=== PATIENT | male | born 1985 | race Caucasian/White ===

== ENCOUNTER 2022-03-26 03:16 | Emergency (ER) | payer OTHER ==
[2022-03-26 03:28] VITALS: BP 136/80; PULSE 75; RESP 15; TEMP 97.5
--- NOTE | 2022-03-26 04:13 | CT ---
EXAMINATION TYPE: CT brain cspine wo con DATE OF EXAM: 03/26/2022 COMPARISON: None HISTORY: fall +LOC. no prior on PACS CT DLP: 1427.6 mGycm Automated exposure control for dose reduction was used. Images obtained of the brain and cervical spine with no contrast. Ventricles and sulci appear normal. There is no mass effect or midline shift. No sign of intracranial hemorrhage. Calvarium is intact. There is normal aeration of the mastoid sinuses. Skull base is inta ct. Cervical vertebra have normal spacing and alignment. Posterior elements are intact. Facet joints are intact. Prevertebral soft tissues are intact. IMPRESSION: Negative CT scan of the brain. Negative CT scan cervical spine.
[2022-03-26] MEDS ORDERED: SODIUM CHLORIDE 0.9% 500 ML 500 ML IV STA (04:34)
--- NOTE | 2022-03-26 04:35 | ED ---
Altered Mental Status HPI - General Chief Complaint: Fall Stated Complaint: Fall, Head Injury, Lost Consciousness, back/neck p Time Seen by Provider: 03/26/22 03:30 Source: patient Mode of arrival: wheelchair Limitations: no limitations - Related Data Home Medications Medication Instructions Recorded Confirmed Escitalopram [Lexapro] 10 mg PO DAILY 03/28/22 04/01/22 QUEtiapine FUMARATE [SEROquel] 800 mg PO HS 03/28/22 04/01/22 busPIRone HCL [Buspar] 30 mg PO BID 03/28/22 04/01/22 Allergies Allergy/AdvReac Type Severity Reaction Status Date / Time No Known Allergies Allergy Unverified 04/01/22 16:22 Review of Systems ROS Statement: Those systems with pertinent positive or pertinent negative responses have been documented in the HPI. ROS Other: All systems not noted in ROS Statement are negative. Past Medical History Past Medical History: Unable to Obtain History of Any Multi-Drug Resistant Organisms: Unobtainable Past Surgical History: Unable to Obtain Past Psychological History: Unable to Obtain Smoking Status: Unknown if ever smoked Past Alcohol Use History: Unable to Obtain Past Drug Use History: Unable to Obtain General Exam Limitations: no limitations Course Vital Signs 03/26/22 03:24 Temperature 97.5 F L Pulse Rate 75 Respiratory 15 Rate Blood Pressure 136/80 O2 Sat by Pulse 100 Oximetry Disposition Clinical Impression: Fall, Pre-syncope, Syncope Disposition: Left Against Medical Advice Condition: Fair Instructions (If sedation given, give patient instructions): Fall Prevention for Older Adults (ED) Is patient prescribed a controlled substance at d/c from ED?: No Referrals: Nonstaff,Physician [Primary Care Provider] - 1-2 days
== END 2022-03-26 04:36 | disposition left against medical advice (07) ==
LOC: EC 03:16
DX: S06.0X9A Concussion with loss of consciousness of unspecified duration, initial encounter (principal); R55 Syncope and collapse; Z53.29 Procedure and treatment not carried out because of patient's decision for other reasons; W19.XXXA Unspecified fall, initial encounter
CPT/HCPCS: 70450; 72125; 99284

== ENCOUNTER 2022-03-28 13:12 | Inpatient (IN) | payer MEDICAID, OTHER ==
[2022-03-28] MEDS ORDERED: SODIUM CHLORIDE 0.9% 2,000 ML IV ONE (14:22)
[2022-03-28 15:06] LABS: Basophils # (A) 0.1 k/uL (0-0.2); Basophils % (A) 1 %; Eosinophils # (A) 0.3 k/uL (0-0.7); Eosinophils % (A) 3 %; HCT 51.6 % (39.0-53.0); HGB 17.4 gm/dL (13.0-17.5); Lymphocytes # (A) 1.9 k/uL (1.0-4.8); Lymphocytes % (A) 22 %; MCH 31.3 pg (25.0-35.0); MCHC 33.7 g/dL (31.0-37.0); MCV 93.1 fL (80.0-100.0); Mean Platelet Volume 7.1; Monocytes # (A) 0.5 k/uL (0-1.0); Monocytes % (A) 6 %; Neutrophils # (A) 5.7 k/uL (1.3-7.7); Neutrophils % (A) 68 %; Platelet Count 255 k/uL (150-450); RBC 5.54 m/uL (4.30-5.90); RDW 12.9 % (11.5-15.5); WBC 8.5 k/uL (3.8-10.6)
--- NOTE | 2022-03-28 15:08 | ED ---
Psych HPI - General Source: patient, RN notes reviewed Mode of arrival: ambulatory Limitations: no limitations <Corey Chan - Last Filed: 03/28/22 15:07> <Oleksandr Jarvis - Last Filed: 03/28/22 18:20> - General Chief Complaint: Psychiatric Symptoms Stated Complaint: Mental health Time Seen by Provider: 03/28/22 14:13 - History of Present Illness Initial Comments: 36-year-old male presents emergency Department for psychiatric treatment. Patient not forthcoming with information. Patient is brought in by police. Patient recent ER visit for head injury. Patient states his been ongoing for a while patient initially was not responsive though patient was told that he needed to have an IV and urine straight cath patient awoke was able to tolerate oral intake stated that he states his been having some psych issues., Stating that he is confused now. (Corey Chan) - Related Data Allergies Allergy/AdvReac Type Severity Reaction Status Date / Time No Known Allergies Allergy Unverified 03/28/22 16:28 Review of Systems ROS Other: All systems not noted in ROS Statement are negative. <Corey Chan - Last Filed: 03/28/22 15:07> ROS Other: All systems not noted in ROS Statement are negative. <Oleksandr Jarvis - Last Filed: 03/28/22 18:20> ROS Statement: Those systems with pertinent positive or pertinent negative responses have been documented in the HPI. Past Medical History Past Medical History: Unable to Obtain History of Any Multi-Drug Resistant Organisms: Unobtainable Past Surgical History: Unable to Obtain Past Psychological History: Unable to Obtain Smoking Status: Unknown if ever smoked Past Alcohol Use History: Unable to Obtain Past Drug Use History: Unable to Obtain <Corey Chan - Last Filed: 03/28/22 15:07> General Exam Limitations: no limitations General appearance: alert, in no apparent distress Head exam: Present: atraumatic, normocephalic, normal inspection Eye exam: Present: normal appearance, PERRL, EOMI. Absent: scleral icterus, conjunctival injection, periorbital swelling ENT exam: Present: normal exam, normal oropharynx, mucous membranes moist Neck exam: Present: normal inspection, full ROM. Absent: tenderness, meningismus, lymphadenopathy Respiratory exam: Present: normal lung sounds bilaterally. Absent: respiratory distress, wheezes, rales, rhonchi, stridor Cardiovascular Exam: Present: regular rate, normal rhythm, normal heart sounds. Absent: systolic murmur, diastolic murmur, rubs, gallop, clicks Neurological exam: Present: alert, oriented X3, CN II-XII intact, reflexes normal. Absent: motor sensory deficit Skin exam: Present: warm, dry, intact, normal color. Absent: rash <Corey Chan - Last Filed: 03/28/22 15:07> Course Vital Signs 03/28/22 13:53 Temperature 97.9 F Pulse Rate 71 Respiratory 18 Rate Blood Pressure 121/87 O2 Sat by Pulse 100 Oximetry Medical Decision Making - Lab Data Result diagrams: 03/28/22 14:55 <Corey Chan - Last Filed: 03/28/22 15:07> - Lab Data Result diagrams: 03/28/22 14:55 03/28/22 14:55 <Oleksandr aJrvis - Last Filed: 03/28/22 18:20> - Medical Decision Making Patient arrived by EPS recommended inpatient psychiatric admission. Patient e valuated at bedside at 6:20 PM found with stable medical condition. Certification was completed. (Oleksandr Jarvis) - Lab Data Lab Results 03/28/22 03/28/22 03/28/22 Range/Units 14:55 14:55 15:30 WBC 8.5 (3.8-10.6) k/uL RBC 5.54 (4.30-5.90) m/uL Hgb 17.4 (13.0-17.5) gm/dL Hct 51.6 (39.0-53.0) % MCV 93.1 (80.0-100.0) fL MCH 31.3 (25.0-35.0) pg MCHC 33.7 (31.0-37.0) g/dL RDW 12.9 (11.5-15.5) % Plt Count 255 (150-450) k/uL MPV 7.1 Neutrophils % 68 % Lymphocytes % 22 % Monocytes % 6 % Eosinophils % 3 % Basophils % 1 % Neutrophils # 5.7 (1.3-7.7) k/uL Lymphocytes # 1.9 (1.0-4.8) k/uL Monocytes # 0.5 (0-1.0) k/uL Eosinophils # 0.3 (0-0.7) k/uL Basophils # 0.1 (0-0.2) k/uL Sodium 139 (137-145) mmol/L Potassium 4.9 (3.5-5.1) mmol/L Chloride 101 (98-107) mmol/L Carbon Dioxide 30 (22-30) mmol/L Anion Gap 8 mmol/L BUN 12 (9-20) mg/dL Creatinine 0.79 (0.66-1.25) mg/dL Est GFR (CKD-EPI)AfAm >90 (>60 ml/min/1.73 sqM) Est GFR (CKD-EPI)NonAf >90 (>60 ml/min/1.73 sqM) Glucose 93 (74-99) mg/dL Calcium 9.6 (8.4-10.2) mg/dL Magnesium 2.1 (1.6-2.3) mg/dL Total Bilirubin 0.9 (0.2-1.3) mg/dL AST 29 (17-59) U/L ALT 15 (4-49) U/L Alkaline Phosphatase 74 (38-126) U/L Total Protein 8.2 (6.3-8.2) g/dL Albumin 5.1 H (3.5-5.0) g/dL Lipase 402 H (23-300) U/L Urine Color Yellow Urine Appearance Clear (Clear) Urine pH 6.5 (5.0-8.0) Ur Specific [place] 1.019 (1.001-1.035) Urine Protein Trace H (Negative) Urine Glucose (UA) Negative (Negative) Urine Ketones Negative (Negative) Urine Blood Negative (Negative) Urine Nitrite Negative (Negative) Urine Bilirubin Negative (Negative) Urine Urobilinogen <2.0 (<2.0) mg/dL Ur Leukocyte Esterase Trace H (Negative) Urine RBC 1 (0-5) /hpf Urine WBC 4 (0-5) /hpf Ur Squamous Epith Cells <1 (0-4) /hpf Hyaline Casts 1 (0-2) /lpf Urine Mucus Rare H (None) /hpf Salicylates <1.0 mg/dL Urine Opiates Screen Not Detected (NotDetected) Ur Oxycodone Screen Not Detected (NotDetected) Urine Methadone Screen Not Detected (NotDetected) Ur Propoxyphene Screen Not Detected (NotDetected) Acetaminophen <10.0 ug/mL Ur Barbiturates Screen Not Detected (NotDetected) U Tricyclic Antidepress Not Detected (NotDetected) Ur Phencyclidine Scrn Not Detected (NotDetected) Ur Amphetamines Screen Not Detected (NotDetected) U Methamphetamines Scrn Not Detected (NotDetected) U Benzodiazepines Scrn Not Detected (NotDetected) Urine Cocaine Screen Not Detected (NotDetected) U Marijuana (THC) Screen Not Detected (NotDetected) Serum Alcohol <10 mg/dL Disposition <Corey Chan M - Last Filed: 03/28/22 15:07> <Oleksandr Jarvis - Last Filed: 03/28/22 18:20> Clinical Impression: Psychosis Disposition: ADMITTED IP TO THIS [facility] Condition: Fair Referrals: None,Stated [Primary Care Provider] - 1-2 days
[2022-03-28 15:17] LABS: ALT 15 U/L (4-49); AST 29 U/L (17-59); Acetaminophen <10.0 ug/mL; African American GFR (CKD) >90 (>60 ml/min/1.73 sqM); Albumin 5.1 g/dL (3.5-5.0); Alcohol <10 mg/dL; Alkaline Phosphatase 74 U/L (38-126); Anion Gap 8 mmol/L; Blood Urea Nitrogen 12 mg/dL (9-20); Calcium 9.6 mg/dL (8.4-10.2); Carbon Dioxide 30 mmol/L (22-30); Chloride 101 mmol/L (98-107); Glucose 93 mg/dL (74-99); Lipase 402 U/L (23-300); Magnesium 2.1 mg/dL (1.6-2.3); Non-African American GFR(CKD) >90 (>60 ml/min/1.73 sqM); Potassium 4.9 mmol/L (3.5-5.1); Salicylate <1.0 mg/dL; Sodium 139 mmol/L (137-145); Total Bilirubin 0.9 mg/dL (0.2-1.3); Total Protein 8.2 g/dL (6.3-8.2)
[2022-03-28 15:46] LABS: Appearance,Urine Clear (Clear); Bilirubin,Urine Negative (Negative); Blood,Urine Negative (Negative); Color,Urine Yellow; Glucose,Urine (UA) Negative (Negative); Hyaline Casts,Urine 1 /lpf (0-2); Ketones,Urine Negative (Negative); Leukocyte Esterase,Urine Trace (Negative); Mucus,Urine Rare /hpf; Nitrite,Urine Negative (Negative); PH, Urine 6.5 (5.0-8.0); Protein,Urine Trace (Negative); RBC,Urine 1 /hpf (0-5); Specific Gravity,Urine 1.019 (1.001-1.035); Squamous Epithelial Cell,Urine <1 /hpf (0-4); Urobilinogen,Urine <2.0 mg/dL (<2.0); WBC,Urine 4 /hpf (0-5)
[2022-03-28 15:57] LABS: Amphetamine Screen,Urine Not Detected (NotDetected); Barbiturate Screen,Urine Not Detected (NotDetected); Benzodiazepines Screen,Urine Not Detected (NotDetected); Cocaine Screen,Urine Not Detected (NotDetected); Methadone Screen, Urine Not Detected (NotDetected); Opiate Screen,Urine Not Detected (NotDetected); Oxycodone Screen, Urine Not Detected (NotDetected); Phencyclidine Screen,Urine Not Detected (NotDetected); Tricyclic Antidepressant,Urine Not Detected (NotDetected); Urn Cannabinoid Scrn Not Detected (NotDetected)
[2022-03-28] MEDS ORDERED: MAGNESIUM HYDROXIDE 2,400 MG/10 ML CUP PO PRN (22:32)
[2022-03-28] MEDS ORDERED: ACETAMINOPHEN TAB 325 MG TAB PO PRN (22:32)
[2022-03-28] MEDS ORDERED: MAG HYDROX/AL HYDROX/SIMETH 30 ML CUP PO PRN (22:32)
[2022-03-28] MEDS ORDERED: LORazepam 2 MG/ML INJ IM PRN (22:51)
[2022-03-28] MEDS ORDERED: LORazepam 1 MG TAB PO STA (22:51)
[2022-03-28] MEDS ORDERED: LORazepam 1 MG TAB PO PRN (22:51)
[2022-03-28] MEDS ORDERED: haloperidoL 5 MG TAB PO PRN (22:54)
[2022-03-28] MEDS ORDERED: HALOPERIDOL LACTATE 5 MG/ML 1 ML VIAL IM PRN (22:54)
[2022-03-28] MEDS ORDERED: QUEtiapine 100 MG TAB PO SCH (23:00)
--- NOTE | 2022-03-29 01:40 | P.PN ---
Progress Note - Text Progress Note Date: 03/29/22 Notified of the consult by the mental health unit RN who also noted that the patient is currently actively psychotic and not appropriate for evaluation.
[2022-03-29] MEDS: NICOTINE 14MG/24HR PATCH TRANSDERM SCH (09:34)
[2022-03-29] MEDS: ESCITALOPRAM 10 MG TAB PO SCH (09:35)
[2022-03-29] MEDS: busPIRone HCl 10 MG TAB PO SCH ×2 (09:35→21:09)
[2022-03-29 09:57] LABS: Basophils % (A) 0 %; Eosinophils # (A) 0.2 k/uL (0-0.7); Eosinophils % (A) 3 %; HCT 46.8 % (39.0-53.0); HGB 15.7 gm/dL (13.0-17.5); Lymphocytes % (A) 18 %; MCH 31.9 pg (25.0-35.0); MCHC 33.6 g/dL (31.0-37.0); MCV 94.9 fL (80.0-100.0); Mean Platelet Volume 7.1; Monocytes # (A) 0.2 k/uL (0-1.0); Monocytes % (A) 3 %; Neutrophils # (A) 3.9 k/uL (1.3-7.7); Neutrophils % (A) 74 %; Platelet Count 211 k/uL (150-450); RBC 4.93 m/uL (4.30-5.90); RDW 13.3 % (11.5-15.5); WBC 5.3 k/uL (3.8-10.6)
[2022-03-29 10:11] LABS: ALT 12 U/L (4-49); AST 16 U/L (17-59); African American GFR (CKD) >90 (>60 ml/min/1.73 sqM); Albumin 3.8 g/dL (3.5-5.0); Alkaline Phosphatase 58 U/L (38-126); Anion Gap 5 mmol/L; Bilirubin,Unconjugated 0.6 mg/dL (0.0-1.1); Blood Urea Nitrogen 9 mg/dL (9-20); Calcium 8.9 mg/dL (8.4-10.2); Carbon Dioxide 29 mmol/L (22-30); Chloride 105 mmol/L (98-107); Glucose 111 mg/dL (74-99); Non-African American GFR(CKD) >90 (>60 ml/min/1.73 sqM); Potassium 4.2 mmol/L (3.5-5.1); Sodium 139 mmol/L (137-145); Total Bilirubin 0.6 mg/dL (0.2-1.3); Total Protein 6.2 g/dL (6.3-8.2)
--- NOTE | 2022-03-29 12:02 | P.HP ---
Psychiatric H&P - . H&P Date: 03/29/22 History & Physical: Allergies Allergy/AdvReac Type Severity Reaction Status Date / Time No Known Allergies Allergy Unverified 03/28/22 16:28 Vital Signs Temp 97.1 F L 03/29/22 00:41 Pulse 63 03/29/22 00:41 Resp 16 03/29/22 09:33 BP 111/72 03/29/22 00:41 Pulse Ox 99 03/29/22 09:33 FiO2 Intake & Output 03/28/22 03/29/22 03/29/22 18:59 06:59 18:59 Weight 72.575 kg Laboratory Last Values WBC 5.3 k/uL (3.8-10.6) 03/29/22 09:27 RBC 4.93 m/uL (4.30-5.90) 03/29/22 09:27 Hgb 15.7 gm/dL (13.0-17.5) 03/29/22 09:27 Hct 46.8 % (39.0-53.0) 03/29/22 09:27 MCV 94.9 fL (80.0-100.0) 03/29/22 09:27 MCH 31.9 pg (25.0-35.0) 03/29/22 09:27 MCHC 33.6 g/dL (31.0-37.0) 03/29/22 09:27 RDW 13.3 % (11.5-15.5) 03/29/22 09:27 Plt Count 211 k/uL (150-450) 03/29/22 09:27 MPV 7.1 03/29/22 09:27 Neutrophils % 74 % 03/29/22 09:27 Lymphocytes % 18 % 03/29/22 09:27 Monocytes % 3 % 03/29/22 09:27 Eosinophils % 3 % 03/29/22 09:27 Basophils % 0 % 03/29/22 09:27 Neutrophils # 3.9 k/uL (1.3-7.7) 03/29/22 09:27 Lymphocytes # 1.0 k/uL (1.0-4.8) 03/29/22 09:27 Monocytes # 0.2 k/uL (0-1.0) 03/29/22 09:27 Eosinophils # 0.2 k/uL (0-0.7) 03/29/22 09:27 Basophils # 0.0 k/uL (0-0.2) 03/29/22 09:27 Sodium 139 mmol/L (137-145) 03/29/22 09:27 Potassium 4.2 mmol/L (3.5-5.1) 03/29/22 09:27 Chloride 105 mmol/L (98-107) 03/29/22 09:27 Carbon Dioxide 29 mmol/L (22-30) 03/29/22 09:27 Anion Gap 5 mmol/L 03/29/22 09:27 BUN 9 mg/dL (9-20) 03/29/22 09:27 Creatinine 0.87 mg/dL (0.66-1.25) 03/29/22 09:27 Est GFR (CKD-EPI)AfAm >90 (>60 ml/min/1.73 sqM) 03/29/22 09:27 Est GFR (CKD-EPI)NonAf >90 (>60 ml/min/1.73 sqM) 03/29/22 09:27 Glucose 111 mg/dL (74-99) H 03/29/22 09:27 Calcium 8.9 mg/dL (8.4-10.2) 03/29/22 09:27 Magnesium 2.1 mg/dL (1.6-2.3) 03/28/22 14:55 Total Bilirubin 0.6 mg/dL (0.2-1.3) 03/29/22 09:27 Conjugated Bilirubin 0.0 mg/dL (0.0-0.3) 03/29/22 09:27 Unconjugated Bilirubin 0.6 mg/dL (0.0-1.1) 03/29/22 09:27 Delta Bilirubin 0.0 mg/dL (0.0-0.2) 03/29/22 09:27 AST 16 U/L (17-59) L 03/29/22 09:27 ALT 12 U/L (4-49) 03/29/22 09:27 Alkaline Phosphatase 58 U/L (38-126) 03/29/22 09:27 Total Protein 6.2 g/dL (6.3-8.2) L 03/29/22 09:27 Albumin 3.8 g/dL (3.5-5.0) 03/29/22 09:27 Lipase 402 U/L (23-300) H 03/28/22 14:55 TSH 0.475 mIU/L (0.465-4.680) 03/29/22 09:27 Urine Color Yellow 03/28/22 15:30 Urine Appearance Clear (Clear) 03/28/22 15:30 Urine pH 6.5 (5.0-8.0) 03/28/22 15:30 Ur Specific [place] 1.019 (1.001-1.035) 03/28/22 15:30 Urine Protein Trace (Negative) H 03/28/22 15:30 Urine Glucose (UA) Negative (Negative) 03/28/22 15:30 Urine Ketones Negative (Negative) 03/28/22 15:30 Urine Blood Negative (Negative) 03/28/22 15:30 Urine Nitrite Negative (Negative) 03/28/22 15:30 Urine Bilirubin Negative (Negative) 03/28/22 15:30 Urine Urobilinogen <2.0 mg/dL (<2.0) 03/28/22 15:30 Ur Leukocyte Esterase Trace (Negative) H 03/28/22 15:30 Urine RBC 1 /hpf (0-5) 03/28/22 15:30 Urine WBC 4 /hpf (0-5) 03/28/22 15:30 Ur Squamous Epith Cells <1 /hpf (0-4) 03/28/22 15:30 Hyaline Casts 1 /lpf (0-2) 03/28/22 15:30 Urine Mucus Rare /hpf (None) H 03/28/22 15:30 Salicylates <1.0 mg/dL 03/28/22 14:55 Urine Opiates Screen Not Detected (NotDetected) 03/28/22 15:30 Ur Oxycodone Screen Not Detected (NotDetected) 03/28/22 15:30 Urine Methadone Screen Not Detected (NotDetected) 03/28/22 15:30 Ur Propoxyphene Screen Not Detected (NotDetected) 03/28/22 15:30 Acetaminophen <10.0 ug/mL 03/28/22 14:55 Ur Barbiturates Screen Not Detected (NotDetected) 03/28/22 15:30 U Tricyclic Antidepress Not Detected (NotDetected) 03/28/22 15:30 Ur Phencyclidine Scrn Not Detected (NotDetected) 03/28/22 15:30 Ur Amphetamines Screen Not Detected (NotDetected) 03/28/22 15:30 U Methamphetamines Scrn Not Detected (NotDetected) 03/28/22 15:30 U Benzodiazepines Scrn Not Detected (NotDetected) 03/28/22 15:30 Urine Cocaine Screen Not Detected (NotDetected) 03/28/22 15:30 U Marijuana (THC) Screen Not Detected (NotDetected) 03/28/22 15:30 Serum Alcohol <10 mg/dL 03/28/22 14:55 Coronavirus (PCR) Not Detected (Not Detectd) 03/28/22 18:23 03/29/22 12:02 IDENTIFYING DATA: Patient is a 36-year-old male with significant history of schizophrenia was admitted for a mental health evaluation. HPI: Patient presented to the hospital on 03/28/2022, brought in by police. The patient appeared to be confused, exhibiting psychomotor slowing, and unable to appropriately answer questions. As per APS report, the patient stated that he felt dazed and confused and that would take him 5 hours to walk a mile because he gets lost and eases off. The patient also is reported to have several medications including Seroquel, BuSpar, and Lexapro. The patient was subsequently petitioned and certified and admitted to our psychiatric unit. Upon evaluation on her psychiatric unit, the patient remains selectively mute. As per nursing report last night, the patient required much prompting in order to move out of his wheelchair. He was not resistive but needed prompting to cooperate. He was also noted to be very disheveled than sunburn. The patient was agreeable to Ativan and then went to bed. When assessed this morning, the patient continues to be selectively mute and appears to stare at the ground. He remains minimal in conversation. He is unable to provide any information on the events leading up to this hospitalization. It takes him a few minutes to respond to any questions, even questions that required yes and no answer. He is currently denying any suicidal or homicidal ideation. He denies any auditory or visual hallucinations. When asked about any delusional thoughts or thought process, the patient is unable to respond. Attempts to elicit any further history regarding his psychiatric medications, substance use, social history, family history, and substance abuse, were met with futility. A second certificate was filled out. PAST PSYCHIATRIC HISTORY: Patient has all medications including Seroquel, Lexapro, and BuSpar. Unable to determine whether the patient has been adherent with these medications or if he follows outpatient with any provider. Unable to determine if he has any prior suicide attempts or previous psychiatric hospitalizations. PMH: Past Medical History: Unable to Obtain History of Any Multi-Drug Resistant Organisms: Unobtainable Past Surgical History: Unable to Obtain Past Psychological History: Unable to Obtain Smoking Status: Unknown if ever smoked Past Alcohol Use History: Unable to Obtain Past Drug Use History: Unable to Obtain ALLERGIES: NO KNOWN DRUG ALLERGIES CHEMICAL DEPENDENCY HISTORY: Unable to assess FAMILY PSYCHIATRIC/SUBSTANCE USE HISTORY: Unable to assess SOCIAL HISTORY: Patient is a resident of [facility]. It is uncertain as to how he ended up in [facility] at this time. MENTAL STATUS EXAM: General Appearance: Patient appears to be stated age is alert, however and not directable and is unable to cooperate. Patient appears to have poor hygiene and grooming. Behavior: Patient displays psychomotor retardation. Patient stares aimlessly at the floor. Speech: Patient's speech is nonspontaneous, minimal, mostly mute. Low in volume with one-word replies. Mood/Affect: Patient does not verbalize any mood. Affect is flat. Suicidality/Homicidality: Patient denies any suicidal or homicidal ideation Perceptions: Patient denies any auditory or visual hallucinations. Though content/process: Thought blocking appears to be evident. Memory and concentration: Unable to assess. Judgment and insight: Appears to be poor STRENGTHS/WEAKNESSES: Unable to identify patient's strengths. Weakness is that the patient appears to be catatonic and a poor historian INTELLECT: Unable to assess IMPRESSIONS: Schizophrenia with catatonia PLAN: -Patient is admitted under involuntary status to MHU for stabilization of psychiatric symptoms and safety. A second certification was completed and along with petition will be filed for court. -Medications : We will discontinue Seroquel and start Risperdal 2 mg by mouth twice a day for psychosis We will continue BuSpar 30 mg by mouth twice a day for anxiety and 10 mg by mouth daily of Lexapro for depression We will start Ativan 2 mg by mouth twice a day for possible catatonia -Ativan and Haldol PRN for agitation/aggression -Patient was informed of the risks, benefits and side effects of the medication. -Internal Medicine consult to perform medical evaluation and physical. -NRT - nicotine patch -SW on board for discharge planning. Encourage patient to participate in groups to work on coping skills. 03/29/22 12:02
[2022-03-29 14:17] LABS: Chol/HDL Ratio 4.03 Ratio; LDL Cholesterol,Calculated 93.9 mg/dL (0.0-131.0)
[2022-03-29] MEDS: risperiDONE 2 MG TAB PO SCH (21:09)
[2022-03-29] MEDS: LORazepam 1 MG TAB PO SCH (21:09)
--- NOTE | 2022-03-29 23:15 | P.PN ---
Progress Note - Text Progress Note Date: 03/29/22 patient continues to be inappropriate for evaluation
[2022-03-30] MEDS: LORazepam 1 MG TAB PO SCH ×2 (08:39→20:11)
[2022-03-30] MEDS: ESCITALOPRAM 10 MG TAB PO SCH (08:39)
[2022-03-30] MEDS: NICOTINE 14MG/24HR PATCH TRANSDERM SCH (08:39)
[2022-03-30] MEDS: busPIRone HCl 10 MG TAB PO SCH ×2 (08:39→20:11)
[2022-03-30] MEDS: risperiDONE 2 MG TAB PO SCH ×2 (08:39→20:11)
--- NOTE | 2022-03-30 14:58 | P.PN ---
Progress Note - Text Progress Note Date: 03/30/22 Interval history: Patient was seen in his bed asleep. He awakens briefly to voice and is passively engaged in assessment with eyes remaining closed. He states he is in "extreme pain", but cannot elaborate. He states he did eat breakfast and lunch. He is oriented to self and place, and falls asleep again, does not want to continue assessment on attempt to wake him again. He is able to shake my hand after multiple attempts to get him to comply. No muscle rigidity or way flexibility noted on assessment. Staff reports he is more verbal today and ate his meals, and he has also been asking for his Ativan. Vital signs reviewed and are stable. Mental status exam: General Appearance: Patient appears to be stated age, is laying in bed covered with blankets. Orientation: He is drowsy, and oriented to person, place, but returns to sleep. Behavior: No agitated behavior. Returns to sleep. Poor eye contact. Speech: Patient's speech is mumbled and non-pressured. Mood/Affect: Mood is "ok", affect is congruent and constricted. Suicidality/Homicidality: Unable to assess due to sedation. Perceptions: Unable to assess due to sedation. Though content/process: Unable to assess due to sedation. Memory and concentration: Unable to assess due to sedation. Judgment and insight: Unable to assess due to sedation. Vital Signs (72 hours) 03/28/22 03/28/22 03/29/22 13:53 19:03 00:41 Temperature 97.9 F 97.6 F 97.1 F L Pulse Rate 71 64 Pulse Rate [ 63 Right] Respiratory 18 18 16 Rate Blood Pressure 121/87 109/66 Blood Pressure 111/72 [Left Arm] O2 Sat by Pulse 100 100 Oximetry 03/29/22 03/30/22 09:33 06:08 Temperature 98.3 F Pulse Rate Pulse Rate [ 65 Right] Respiratory 16 Rate Blood Pressure Blood Pressure 102/70 [Left Arm] O2 Sat by Pulse 99 Oximetry Assessment/Plan: Continue with current diagnosis. Patient continues to meet criteria for inpatient psychiatric admission for symptom stabilization and safety. Decrease Ativan from 2 mg BID to 1 mg TID starting tomorrow morning for catatonic features to minimize daytime sedation. Monitor vital signs. Continue Risperdal 2 mg po BID for psychosis. Continue Lexapro 10 mg daily for depression/anxiety. Continue Buspar 30 mg BID for anxiety. Monitor for medication compliance and for any psychotropic medication side effects. Will continue to monitor ongoing response to treatment. Encouraged participation in milieu.
[2022-03-31] MEDS: NICOTINE 14MG/24HR PATCH TRANSDERM SCH (08:37)
[2022-03-31] MEDS: busPIRone HCl 10 MG TAB PO SCH ×2 (08:37→20:16)
[2022-03-31] MEDS: ESCITALOPRAM 10 MG TAB PO SCH (08:38)
[2022-03-31] MEDS: LORazepam 1 MG TAB PO SCH ×3 (08:38→20:16)
[2022-03-31] MEDS: risperiDONE 2 MG TAB PO SCH ×2 (08:38→20:16)
--- NOTE | 2022-03-31 16:56 | P.PN ---
Progress Note - Text Progress Note Date: 03/31/22 Interval history: Patient was seen in his bed asleep. He awakens briefly to voice, answers a few questions, then stares in the distance without responding for at least 5 minutes before speaking again. He continues to exhibit signs of catatonia including immobility, has been withdrawn to his bed for most of the day, is verbally unresponsive to most questions, has poor eye contact and a fixed gaze for minutes before reacting, remains in same posture for several minutes without reacting, repeats the phrase "I'm in extreme pain" yesterday and today without elaborating and objectively does not appear to be in pain. He has been compliant with his medications. Currently he does not exhibit rigidity or waxy flexibility. He is eating meals but staff reports he does not engage or socialize with peers during meals. He remains withdrawn to his bed most of the day, is not attending groups. Vital signs reviewed and he was tachycardic this morning at 117 bpm, but vitals were repeated at my assessment this afternoon and vitals are currently stable. Mental status exam: General Appearance: Patient appears to be stated age, is laying in bed covered with blankets, is malodorous and disheveled. Orientation: He is sleepy, and when he awakens he stares off in a distance for several minutes. He is oriented to person only, does not answer other questions. Behavior: No agitated behavior. Stares, mutism, remains on same posture for minutes at a time. Speech: Selective mutism, non-pressured. Mood/Affect: Mood is "I'm in extreme pain", affect is flat. Suicidality/Homicidality: Unable to assess due to catatonia. Perceptions: Unable to assess due to catatonia. Thought process: Mutism, responses delayed by minutes Thought content: Vague, incomplete statements. Memory and concentration: Unable to assess due to sedation. Judgment and insight: Unable to assess due to sedation. Vital Signs (72 hours) 03/28/22 03/29/22 03/29/22 19:03 00:41 09:33 Temperature 97.6 F 97.1 F L Pulse Rate 64 Pulse Rate [ 63 Right] Respiratory 18 16 16 Rate Blood Pressure 109/66 Blood Pressure 111/72 [Left Arm] O2 Sat by Pulse 100 99 Oximetry 03/30/22 03/30/22 03/31/22 06:08 14:55 08:37 Temperature 98.3 F Pulse Rate Pulse Rate [ 65 83 117 H Right] Respiratory 16 Rate Blood Pressure Blood Pressure 102/70 110/64 127/63 [Left Arm] O2 Sat by Pulse 96 Oximetry 03/31/22 15:27 Temperature Pulse Rate Pulse Rate [ 90 Right] Respiratory Rate Blood Pressure Blood Pressure 128/62 [Left Arm] O2 Sat by Pulse Oximetry Assessment: Catatonia Unspecified mood disorder Unspecified psychotic disorder Rule out Schizoaffective disorder vs Bipolar 1 disorder, current episode depressed with psychotic features Plan: Patient continues to meet criteria for inpatient psychiatric admission for symptom stabilization and safety. Continue Ativan 1 mg TID for catatonic features. Monitor vital signs. Continue Risperdal 2 mg po BID for psychosis. Continue Lexapro 10 mg daily for depression/anxiety. Continue Buspar 30 mg BID for anxiety. Monitor for medication compliance and for any psychotropic medication side effects. Very little is known about this patient. Will attempt to obtain outside records. Will continue to monitor ongoing response to treatment. Encouraged participation in milieu.
[2022-04-01] MEDS: risperiDONE 2 MG TAB PO SCH ×2 (08:31→21:17)
[2022-04-01] MEDS: LORazepam 1 MG TAB PO SCH ×3 (08:31→21:17)
[2022-04-01] MEDS: NICOTINE 14MG/24HR PATCH TRANSDERM SCH (08:31)
[2022-04-01] MEDS: ESCITALOPRAM 10 MG TAB PO SCH (08:31)
[2022-04-01] MEDS: busPIRone HCl 10 MG TAB PO SCH ×2 (08:31→21:17)
--- NOTE | 2022-04-01 21:04 | P.PN ---
Progress Note - Text Progress Note Date: 04/01/22 Interval history: Patient was seen in his bed today staring upwards, continues to exhibit symptoms of catatonia with mutism, maintaining same posture for long periods, immobility, no responses or very delayed responses. He tells me his mood is "ok" and that he "just have some pain all over", but he then is not able to answer any other questions for me and stares upwards. Vital signs reviewed and HR has been elevated today at 137 and 129 this afternoon and evening. He has been compliant with his medications, and nursing staff reports today that he has been coming up to the medication window on time to get his medications without any reported cues, demonstrating some moments of clarity. Staff reports he has been eating meals, does not engage with peers, remains isolated. Currently he does not exhibit rigidity or waxy flexibility. Treatment team is attempting to locate outside records for this patient. It is unclear how he wound up in [facility] since he lives in [facility]. Mental status exam: General Appearance: Patient appears to be stated age, is laying in bed covered with blankets, is malodorous and disheveled. Orientation: He is oriented to person only, does not answer other questions. Behavior: No agitated behavior. Stares, mutism, remains on same posture for minutes at a time. Speech: Selective mutism, non-pressured. Mood/Affect: Mood is "ok", affect is flat. Suicidality/Homicidality: He does not report any suicidal or homicidal ashely ations. Perceptions: Unable to assess due to catatonia. Thought process: Mutism, responses delayed by minutes or no answers at all. Thought content: Vague, incomplete statements. Memory and concentration: Unable to assess due to sedation. Judgment and insight: Unable to assess due to sedation. Vital Signs (72 hours) 03/30/22 03/30/22 03/31/22 06:08 14:55 08:37 Temperature 98.3 F Pulse Rate [ 65 83 117 H Right] Respiratory 16 Rate Blood Pressure 102/70 110/64 127/63 [Left Arm] O2 Sat by Pulse 96 Oximetry 03/31/22 04/01/22 04/01/22 15:27 07:00 17:13 Temperature 98.1 F Pulse Rate [ 90 73 137 H Right] Respiratory 16 Rate Blood Pressure 128/62 112/55 115/63 [Left Arm] O2 Sat by Pulse 99 Oximetry 04/01/22 20:26 Temperature Pulse Rate [ 129 H Right] Respiratory Rate Blood Pressure 115/66 [Left Arm] O2 Sat by Pulse Oximetry Assessment: Catatonia Unspecified mood disorder Unspecified psychotic disorder Rule out Schizoaffective disorder vs Bipolar 1 disorder, current episode depressed with psychotic features Plan: Patient continues to meet criteria for inpatient psychiatric admission for symptom stabilization and safety. Treatment team is attempting to locate outside mental health records for this patient. Increase Ativan to 1.5 mg TID for catatonic features (with hold parameters), with the goal of improving catatonic symptoms without sedating patient. Monitor vital signs and monitor respiratory depression. Continue Risperdal 2 mg po BID for psychosis, and will consider increasing to 3 mg BID based on response to increase in Ativan. Will also consider a trial of Ambien, Memantine or Amantadine if symptoms don't improve with above changes. Continue Lexapro 10 mg daily for depression/anxiety. Continue Buspar 30 mg BID for anxiety. Monitor for medication compliance and for any psychotropic medication side effects. Very little is known about this patient. Will attempt to obtain outside records. Will continue to monitor ongoing response to treatment. Encouraged participation in milieu.
[2022-04-02] MEDS: busPIRone HCl 10 MG TAB PO SCH ×2 (08:19→20:28)
[2022-04-02] MEDS: NICOTINE 14MG/24HR PATCH TRANSDERM SCH (08:19)
[2022-04-02] MEDS: risperiDONE 2 MG TAB PO SCH ×2 (08:20→20:28)
[2022-04-02] MEDS: LORazepam 1 MG TAB PO SCH ×3 (08:20→20:28)
[2022-04-02] MEDS: ESCITALOPRAM 10 MG TAB PO SCH (08:20)
--- NOTE | 2022-04-02 19:25 | P.PN ---
Progress Note - Text Progress Note Date: 04/02/22 *Live* [facility] [address], [place] [address] Progress Note - Text Patient Name: Adrian Bartholomew Date of : 85 Patient Status: Inpatient Attending Provider: Puma Fernandez Date: 04/01/22 20:41 Initialization Date: 04/01/22 20:41 Progress Note - Text Progress Note Date: 04/01/22 Interval history: Patient was seen sitting up in his bed and staring. He appears to have just eaten dinner. He continues to exhibit symptoms of catatonia with mutism, maintaining same posture for long periods and immobility. He continues to have delayed responses or no responses to some questions, but this improved from yesterday since increasing his Ativan to 1.5 mg TID. He tells me his past medications were Seroquel, Lexapro and Buspar; but is not able to state which doctor prescribed these. When asked about his family he tells me "Mom", but no other details. He occasionally repeats "I'm just in pain all over". He was seen in the ER on 03/26/22 for a fall but left AMA. Currently he does not exhibit rigidity or waxy flexibility. Vital signs reviewed and are stable today. He has been compliant with his medications. He has tested positive for COVID-19 but so far appears to be asymptomatic, is afebrile without cough or shortness of breath. Treatment team is attempting to locate outside records for this patient. [facility] reviewed and shows past scripts for Gabapentin and Ativan from 2020 but no recent prescriptions for controlled substances. Mental status exam: General Appearance: Patient appears to be stated age, is sitting in odd posture on his bed starting, disheveled. Orientation: He is oriented to person only, states he doesn't know where he is. No response when asked for the date. Behavior: No agitated behavior. Stares, mutism, remains in same posture for long time. Speech: Mutism, non-pressured. Mood/Affect: Mood is "I'm in pain all over", affect is flat. Suicidality/Homicidality: He does not report any suicidal or homicidal ideations. Perceptions: Unable to assess due to catatonia. Thought process: Mutism, responses still delayed but improving. Thought content: Brief responses. Memory and concentration: Impaired. Judgment and insight: Poor. Vital Signs (72 hours) 03/31/22 03/31/22 04/01/22 08:37 15:27 07:00 Temperature 98.1 F Pulse Rate [ 117 H 90 73 Right] Respiratory 16 Rate Blood Pressure 127/63 128/62 112/55 [Left Arm] O2 Sat by Pulse 99 Oximetry 04/01/22 04/01/22 04/02/22 17:13 20:26 15:55 Temperature 98.1 F Pulse Rate [ 137 H 129 H 99 Right] Respiratory 20 Rate Blood Pressure 115/63 115/66 110/58 [Left Arm] O2 Sat by Pulse Oximetry Assessment: Catatonia Unspecified mood disorder Unspecified psychotic disorder Rule out Schizoaffective disorder vs Bipolar 1 disorder, current episode depressed with psychotic features vs MDD with psychotic features COVID-19 positive - currently asymptomatic Plan: Patient continues to meet criteria for inpatient psychiatric admission for symptom stabilization and safety. Treatment team is attempting to locate outside mental health records for this patient. Continue Ativan 1.5 mg TID for catatonic features (with hold parameters), with the goal of improving catatonic symptoms without sedating patient. Monitor vital signs and monitor respiratory depression. Start Ambien 10 mg QHS for catatonia. Continue Risperdal 2 mg po BID for psychosis. Will also Memantine or Amantadine if symptoms don't improve with above changes. Continue Lexapro 10 mg daily for depression/anxiety. Continue Buspar 30 mg BID for anxiety. Continue Tylenol PRN for pain. Monitor for medication compliance and for any psychotropic medication side effects. Very little is known about this patient. Will attempt to obtain outside records. Will continue to monitor ongoing response to treatment. Encouraged participation in milieu.
[2022-04-02] MEDS: ZOLPIDEM 5 MG TAB PO SCH (20:29)
[2022-04-03] MEDS: NICOTINE 14MG/24HR PATCH TRANSDERM SCH ×2 (09:00→11:11)
[2022-04-03] MEDS: ESCITALOPRAM 10 MG TAB PO SCH (09:01)
[2022-04-03] MEDS: busPIRone HCl 10 MG TAB PO SCH ×2 (09:01→20:15)
[2022-04-03] MEDS: LORazepam 1 MG TAB PO SCH ×3 (09:01→20:15)
[2022-04-03] MEDS: risperiDONE 2 MG TAB PO SCH ×2 (09:01→20:15)
--- NOTE | 2022-04-03 18:35 | P.PN ---
Progress Note - Text Progress Note Date: 04/03/22 Interval history: Patient was seen laying in his bed and is agreeable to speak with this credit underwriter. He appears to be improving since starting the Ambien last night. He is alert, and oriented to person, place, and year. He remains laying in bed, does not sit up for assessment, is hypoactive but does not appear to maintain odd postures as he did previously. He is more vocal today, responds to most questions which is improved from previous days, is less delayed in his responses than previous days, however many of his responses are "I don't know". He reports he was living in [place] prior to admission at [facility] He reports living at that [facility], but is not able to offer other information about that arrangement. Prior to this, he reports he was living in [place] but moved from that address a few months ago. He reports he was diagnosed with "depression, anxiety" in the past and took "Seroquel, Buspar". He does not recall if he was compliant with these medications prior to admission and does not recall the pharmacy they were filled at. He denies auditory or visual hallucinations. He denies alcohol or drug use prior to admission, denies abuse of prescription drugs. When asked about his family or his mother, he stat es "I can't take it... all the questions", and later apologizes. He does not talk about his family today. He denies pain today. Vital signs reviewed and are stable today. He has been compliant with his medications, denies side effects. He COVID-19 positive but so far appears to be asymptomatic, is afebrile without cough or shortness of breath. Mental status exam: General Appearance: Patient appears to be stated age, is laying in bed covered in blankets, fair hygiene. Orientation: He is oriented to person, place and year (does not know the month when asked). Behavior: No agitated behavior. Hypoactive, remains laying in bed, does not appear to hold odd postures as he did in recent days. Speech: More vocal and responsive today, is able to answer most questions with less delay. Non-pressured. Mood/Affect: Mood is "not sad", affect is flat. Suicidality/Homicidality: He does not report any suicidal or homicidal ideations. Perceptions: He denies auditory or visual hallucinations. Thought process: [place], he is responding to more questions with less delay Thought content: Simplistic, lacking detail Memory and concentration: Impaired Judgment and insight: Poor. Vital Signs (72 hours) 04/01/22 04/01/22 04/01/22 07:00 17:13 20:26 Temperature 98.1 F Pulse Rate [ 73 137 H 129 H Right] Respiratory 16 Rate Blood Pressure 112/55 115/63 115/66 [Left Arm] O2 Sat by Pulse 99 Oximetry 04/02/22 04/03/22 15:55 06:45 Temperature 98.1 F 97.5 F L Pulse Rate [ 99 93 Right] Respiratory 20 16 Rate Blood Pressure 110/58 103/57 [Left Arm] O2 Sat by Pulse 96 Oximetry Assessment: Catatonia Unspecified mood disorder, rule out MDD with psychotic features vs Bipolar 1 disorder, current episode depressed with psychotic features Unspecified psychotic disorder COVID-19 positive - currently asymptomatic Plan: Patient continues to meet criteria for inpatient psychiatric admission for symptom stabilization and safety. -Medications: Continue Ativan 1.5 mg TID for catatonic features (with hold parameters), with the goal of improving catatonic symptoms without sedating patient. Monitor vital signs and monitor respiratory depression. Continue Ambien 10 mg QHS for catatonia. He is showing significant improvement today after starting Ambien last night. Continue Risperdal 2 mg po BID for psychosis. Will also consider Memantine or Amantadine if needed. Continue Lexapro 10 mg daily for depression/anxiety. Continue Buspar 30 mg BID for anxiety. Continue Tylenol PRN for pain. Monitor for medication compliance and for any psychotropic medication side effects. Will continue to monitor ongoing response to treatment. Encouraged participation in milieu.
[2022-04-03] MEDS: ZOLPIDEM 5 MG TAB PO SCH (20:15)
[2022-04-04] MEDS: NICOTINE 14MG/24HR PATCH TRANSDERM SCH (08:27)
[2022-04-04] MEDS: LORazepam 1 MG TAB PO SCH (08:27)
[2022-04-04] MEDS: busPIRone HCl 10 MG TAB PO SCH ×2 (08:27→20:16)
[2022-04-04] MEDS: risperiDONE 2 MG TAB PO SCH (08:27)
[2022-04-04] MEDS: ESCITALOPRAM 10 MG TAB PO SCH (08:28)
[2022-04-04] MEDS ORDERED: LORazepam 1 MG TAB PO SCH (16:00)
[2022-04-04] MEDS: LORazepam 0.5 MG TAB PO SCH ×2 (16:19→20:16)
--- NOTE | 2022-04-04 17:35 | P.PN ---
Progress Note - Text Progress Note Date: 04/04/22 Interval history: Patient was seen laying in his bed and is agreeable to speak with this teletypewriter operator. He appears to be improving since starting the Ambien two nights ago. He is alert, and oriented to person, place, and year. He remains laying in bed again today, does not sit up for assessment, is hypoactive but does not maintain odd postures as he did previously. He is more vocal today, responds to most questions immediately which is an improvement, but often times the answer is "I don't know". He denies depressed mood, suicidal or homicidal ideations. He denies auditory or visual hallucinations, but does appear guarded and to be attending to internal stimuli. He states he is having a difficult time processing questions, needs questions repeated sometimes, but he is able to provide more information today. He reports he moved from [place] to [place] because "met a michelle who owns a religion", and moved to [place] to live at the religion in exchange for taking care of the religion (mowing lawn, cleaning etc). He eventually asks to stop the assessment, appears to be overwhelmed with questions. Vital signs reviewed and are stable today. He has been compliant with his medications, denies side effects. He COVID-19 positive but so far appears to be asymptomatic, is afebrile without cough or shortness of breath. I spoke with his shoe caser at [facility] ([facility] ) who reports patient last saw the psychiatrist at [facility] on 03/05/22. She reports his diagnosis is Bipolar II disorder, and his most recent medications are Buspar 30 mg BID, Seroquel 600 mg QHS and Lexapro 10 mg daily. She does not know much personal information about him since he has been guarded with her when she has met with him. Mental status exam: General Appearance: Patient appears to be stated age, is laying in bed covered in blankets, fair hygiene. Orientation: He is oriented to person, place and year. Behavior: No agitated behavior. Hypoactive, remains laying in bed, guarded. Speech: More vocal and responsive today, is able to answer most questions with little delay. Non-pressured. Mood/Affect: Mood is "fine", affect is flat. Suicidality/Homicidality: He does not report any suicidal or homicidal ideations. Perceptions: He denies auditory or visual hallucinations, but does appear to be attending to internal stimuli. Thought process: [place], he is responding to more questions with little delay. Thought content: Simplistic, lacking detail, "I don't know" Memory and concentration: Impaired Judgment and insight: Poor. Vital Signs (72 hours) 04/01/22 04/01/22 04/01/22 07:00 17:13 20:26 Temperature 98.1 F Pulse Rate [ 73 137 H 129 H Right] Respiratory 16 Rate Blood Pressure 112/55 115/63 115/66 [Left Arm] O2 Sat by Pulse 99 Oximetry 04/02/22 04/03/22 15:55 06:45 Temperature 98.1 F 97.5 F L Pulse Rate [ 99 93 Right] Respiratory 20 16 Rate Blood Pressure 110/58 103/57 [Left Arm] O2 Sat by Pulse 96 Oximetry Assessment: Catatonia Unspecified mood disorder, rule out MDD with psychotic features vs Bipolar 1 disorder, current episode depressed with psychotic features Unspecified psychotic disorder COVID-19 positive - currently asymptomatic Plan: Patient continues to meet criteria for inpatient psychiatric admission for symptom stabilization and safety. -Medications: Increase Risperdal to 2 mg QAM/3 mg QHS for today, and increase to 3 mg BID starting tomorrow for psychosis. Decrease Ativan to 1.25 mg TID for catatonic features (with hold parameters). Monitor vital signs and monitor respiratory depression. Continue Ambien 10 mg QHS for catatonia. He is showing significant improvement after starting Ambien two nights ago. Continue Lexapro 10 mg daily for depression/anxiety. Continue Buspar 30 mg BID for anxiety. Continue Tylenol PRN for pain. Monitor for medication compliance and for any psychotropic medication side effects. Will continue to monitor ongoing response to treatment. Encouraged participation in milieu. Social work is on board for discharge planning.
[2022-04-04] MEDS: ZOLPIDEM 5 MG TAB PO SCH (20:16)
[2022-04-04] MEDS: risperiDONE 1 MG TAB PO SCH (20:16)
[2022-04-05 07:23] VITALS: RESP 16
[2022-04-05] MEDS: LORazepam 0.5 MG TAB PO SCH ×3 (09:30→20:27)
[2022-04-05] MEDS: NICOTINE 14MG/24HR PATCH TRANSDERM SCH (09:30)
[2022-04-05] MEDS: busPIRone HCl 10 MG TAB PO SCH ×2 (09:31→20:27)
[2022-04-05] MEDS: risperiDONE 1 MG TAB PO SCH ×2 (09:32→20:28)
[2022-04-05] MEDS: ESCITALOPRAM 10 MG TAB PO SCH (09:32)
--- NOTE | 2022-04-05 15:06 | P.PN ---
Progress Note - Text Progress Note Date: 04/05/22 Interval history: Patient was seen asleep in bed, awakens easily to voice, and is agreeable to speak with this com writer. He is alert, and oriented to person, place, and time. He continues to be withdrawn, isolates to his room, lacking motivation. He does sit up for assessment when asked which an improvement for him. He responds to most questions with little delay. He denies suicidal or homicidal ideations. He denies auditory or visual hallucinations, but does appear guarded and appears to be attending to internal stimuli. When asked about his job, he believes he still has his job at the [employer] and plans to go back to live there. When asked if he has contacted his employer to confirm his job, he states "no, he's on vacation". Again today, he appears overwhelmed after a few minutes of questions and no longer engages in assessment. Vital signs reviewed and are stable today. He has been compliant with his medications, denies side effects. He COVID-19 positive but so far appears to be asymptomatic, is afebrile without cough or shortness of breath. Records from [facility] received and reviewed which indicate patient has a history of noncompliance with medications, and has been hospitalized at least 6 times in the past 6 months. Records from his 03/05/22 [facility] appointment state patient called in to the appointment via phone. He had been recently hospitalized at [facility] from 02/13/22-02/22/22. He reported to his clinician, Maia ARMSTRONG, that he is currently "stranded in [place] without meds. Drove car to [place], used all gas money to get there and the job did not work out. No money to get home. Without medications for the past 2 days. Did not sleep last night. Answers most questions with "I don't know"..." The clinician refilled his medications on 03/05/22 for one month to [facility] in [place] ([phone]): Seroquel 600 mg QHS, Buspar 30 mg BID and Lexapro 10 mg daily. The clinician discussed option of long-acting injectable with him to improve compliance, and planned to discuss this once again when he was back in the [facility] in one month. I called the [facility] pharmacy and the pharmacist reports the medications were called in on 03/19/22 and patient didn't pick them up. Mental status exam: General Appearance: Patient appears to be stated age, is laying in bed, disheveled, not showered. Orientation: He is oriented to person, place and time. Behavior: No agitated behavior. Withdrawn, guarded, isolates to his bed. Speech: Able to answer most questions with little delay. Non-pressured. Mood/Affect: Mood is "ok", affect is flat. Suicidality/Homicidality: He does not report any suicidal or homicidal ideations. Perceptions: He denies auditory or visual hallucinations, but does appear to be attending to internal stimuli. Thought process: [place] Thought content: vague, lacking detail, "I don't know" Memory and concentration: Impaired Judgment and insight: Poor. Vital Signs (72 hours) 04/02/22 04/03/22 04/04/22 15:55 06:45 08:24 Temperature 98.1 F 97.5 F L 97.8 F Pulse Rate [ 99 93 84 Right] Respiratory 20 16 18 Rate Blood Pressure 110/58 103/57 118/73 [Left Arm] O2 Sat by Pulse 96 97 Oximetry 04/05/22 06:50 Temperature 97.7 F Pulse Rate [ 77 Right] Respiratory 16 Rate Blood Pressure 123/69 [Left Arm] O2 Sat by Pulse Oximetry Assessment: Catatonia - resolving Unspecified mood disorder, rule out Bipolar 1 disorder, current episode depressed with psychotic features Unspecified psychotic disorder COVID-19 positive - currently asymptomatic Plan: Patient continues to meet criteria for inpatient psychiatric admission for symptom stabilization and safety. -Medications: Start Depakote ER 1000 mg QHS for mood stabilization. Risperdal increased to 3 mg BID starting today for psychosis. Adjust dose as tolerated and plan to transition to long-acting injectable. Continue Ativan 1.25 mg TID for catatonic features (with hold parameters). Monitor vital signs and monitor respiratory depression. Continue Ambien 10 mg QHS for catatonia. He is showing significant improvement after starting Ambien two nights ago. Continue Lexapro 10 mg daily for depression/anxiety. Continue Buspar 30 mg BID for anxiety. Monitor for medication compliance and for any psychotropic medication side effects. Will continue to monitor ongoing response to treatment. Encouraged participation in milieu. Social work is on board for discharge planning.
[2022-04-05] MEDS: DIVALPROEX ER 500 MG TAB.ER.24H PO SCH (20:28)
[2022-04-05] MEDS: ZOLPIDEM 5 MG TAB PO SCH (20:28)
[2022-04-06] MEDS: LORazepam 0.5 MG TAB PO SCH ×2 (09:12→16:10)
[2022-04-06] MEDS: risperiDONE 1 MG TAB PO SCH ×2 (09:12→20:48)
[2022-04-06] MEDS: ESCITALOPRAM 10 MG TAB PO SCH (09:12)
[2022-04-06] MEDS: busPIRone HCl 10 MG TAB PO SCH ×2 (09:12→20:47)
[2022-04-06] MEDS: NICOTINE 14MG/24HR PATCH TRANSDERM SCH (09:13)
--- NOTE | 2022-04-06 17:00 | P.PN ---
Progress Note - Text Progress Note Date: 04/06/22 Interval history: Patient was seen laying in bed, awakens easily to voice, and is agreeable to speak with this marketing copywriter. He is alert, and oriented to person, place, and time. He continues to isolate to his room, lays in bed most of the day. He responds to most questions without delay, and thoughts are more spontaneous today which is a significant improvement for him since admission. He is not showered, but does ask for new pillowcases and a new hospital gown. When encouraged to shower today, he tells me "maybe tomorrow", continues to have difficulty with energy and motivation to perform organized tasks such as self-care or group participation. He denies suicidal or homicidal ideation, intent or plan. He denies depressed mood, but objectively appears depressed. He denies auditory or visual hallucinations, states he was "never hearing voices", but does appear more focused on higher dose of Risperdal and since starting Depakote. Vital signs reviewed and are stable today. He has been compliant with his medications, denies side effects. He COVID-19 positive but so far appears to be asymptomatic, is afebrile without cough or shortness of breath. Mental status exam: General Appearance: Patient appears to be stated age, is laying in bed, disheveled, not showered. Orientation: He is alert and oriented to person, place and time. Behavior: No agitated behavior. Isolates to his bed, lacking motivation to shower or engage with group leaders. Speech: Able to answer most questions with little delay. Non-pressured. Mood/Affect: Mood is "ok", affect is improving, less flat, showing slightly more reactivity today. Suicidality/Homicidality: He denies any suicidal or homicidal ideation. Perceptions: He denies auditory or visual hallucinations, but not appear to be attending to internal stimuli. Thought process: [place], responds to most questions without delay Thought content: More spontaneous thoughts today, asks for new pillow cases Memory and concentration: Impaired Judgment and insight: Poor. Vital Signs (72 hours) 04/02/22 04/03/22 04/04/22 15:55 06:45 08:24 Temperature 98.1 F 97.5 F L 97.8 F Pulse Rate [ 99 93 84 Right] Respiratory 20 16 18 Rate Blood Pressure 110/58 103/57 118/73 [Left Arm] O2 Sat by Pulse 96 97 Oximetry 04/05/22 06:50 Temperature 97.7 F Pulse Rate [ 77 Right] Respiratory 16 Rate Blood Pressure 123/69 [Left Arm] O2 Sat by Pulse Oximetry Assessment: Catatonia - resolving Bipolar 1 disorder, current episode depressed with psychotic features (provisional) COVID-19 positive - currently asymptomatic Plan: Patient continues to meet criteria for inpatient psychiatric admission for symptom stabilization and safety. -Medications: Continue Depakote ER 1000 mg QHS for mood stabilization. Valproic acid level ordered for Friday. Continue Risperdal 3 mg BID for psychosis/mood. Adjust dose as tolerated and plan to transition to long-acting injectable prior to discharge due to history of noncompliance with medications leading to severe decompensation including catatonia and repeated hospitalizations Decrease Ativan to 1mg TID for catatonic features (with hold parameters). Monitor vital signs and monitor respiratory depression. Continue Ambien 10 mg QHS for catatonia. He is showing significant improvement after starting Ambien. Continue Lexapro 10 mg daily for depression/anxiety. Continue Buspar 30 mg BID for anxiety. Monitor for medication compliance and for any psychotropic medication side effects. Will continue to monitor ongoing response to treatment. -Encouraged participation in milieu. -Social work is on board for discharge planning.
[2022-04-06] MEDS: DIVALPROEX ER 500 MG TAB.ER.24H PO SCH (20:48)
[2022-04-06] MEDS: ZOLPIDEM 5 MG TAB PO SCH (20:48)
[2022-04-06] MEDS: LORazepam 1 MG TAB PO SCH (20:49)
[2022-04-07] MEDS: NICOTINE 14MG/24HR PATCH TRANSDERM SCH (08:15)
[2022-04-07] MEDS: busPIRone HCl 10 MG TAB PO SCH ×2 (08:15→20:34)
[2022-04-07] MEDS: ESCITALOPRAM 10 MG TAB PO SCH (08:17)
[2022-04-07] MEDS: risperiDONE 1 MG TAB PO SCH ×2 (08:17→20:34)
[2022-04-07] MEDS: LORazepam 1 MG TAB PO SCH ×2 (08:18→16:38)
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
[2022-04-07] MEDS: DIVALPROEX ER 500 MG TAB.ER.24H PO SCH (20:33)
[2022-04-07] MEDS: LORazepam 0.5 MG TAB PO SCH (20:35)
[2022-04-07] MEDS: ZOLPIDEM 5 MG TAB PO SCH (20:35)
[2022-04-08] MEDS: NICOTINE 14MG/24HR PATCH TRANSDERM SCH (08:27)
[2022-04-08] MEDS: LORazepam 0.5 MG TAB PO SCH ×2 (08:27→20:30)
[2022-04-08] MEDS: risperiDONE 1 MG TAB PO SCH ×2 (08:27→20:30)
[2022-04-08] MEDS: ESCITALOPRAM 10 MG TAB PO SCH (08:27)
[2022-04-08] MEDS: busPIRone HCl 10 MG TAB PO SCH ×2 (08:27→20:30)
--- NOTE | 2022-04-08 10:30 | P.PN ---
Progress Note - Text Progress Note Date: 04/08/22 Interval history: Patient was seen laying in bed without any agitated behavior. Currently, the patient is denying any significant psychiatric pathology. He is denying any suicidal or homicidal ideation, intention, and/or plan. He is denying any auditory or visual hallucinations. He reports no paranoia or other delusions. He is also denying any significant symptoms of covid. He denies any malaise, shortness of breath, fever, chills, or congestion. He is not reporting any issues regarding his sleep or his appetite. The patient reports that he was. She staying at [facility] here in [place]. He reports that he was staying there with a friend named Miko. He states that he will sign a release of information for Miko. The patient does state that he was able to shower. Mental status exam: General Appearance: Patient appears to be stated age, is laying in bed, with improved hygiene and grooming. Orientation: He is alert and oriented to person, place and time. Behavior: No agitated behavior. Isolates to his bed. Speech: Non-pressured. No delay. Mood/Affect: Mood is "I'm okay", affect is more reactive today, improving. Blunted. Suicidality/Homicidality: He denies any suicidal or homicidal ideation. Perceptions: He denies auditory or visual hallucinations; does not appear to be attending to internal stimuli. Thought process: Linear Thought content: Spontaneous, superficial. Memory and concentration: Alert, oriented to person, place, time Judgment and insight: Poor. Improving mildly. Vital Signs Temp 97.9 F 04/08/22 06:48 Pulse 69 04/08/22 06:48 Resp 16 04/08/22 06:48 BP 107/59 04/08/22 06:48 Pulse Ox 98 04/08/22 06:48 FiO2 Intake & Output 04/07/22 04/08/22 04/08/22 18:59 06:59 18:59 Intake Total 120 Balance 120 Intake: Oral 120 Assessment: Catatonia - resolved Bipolar 1 disorder, current episode depressed with psychotic features (provisional) COVID-19 positive - currently asymptomatic Plan: Patient continues to meet criteria for inpatient psychiatric admission for symptom stabilization and safety. -Medications: Continue Depakote ER 1000 mg QHS for mood stabilization. Valproic acid level ordered for Vee morning. Continue Risperdal 3 mg BID for psychosis/mood. Adjust dose as tolerated and plan to transition to long-acting injectable prior to discharge due to history of noncompliance with medications leading to severe decompensation including catatonia and repeated hospitalizations. Decrease Ativan to 0.5 mg by mouth twice a day with plans to discontinue tomorrow as catatonia appears to be resolved Continue Ambien 10 mg QHS for catatonia. Continue Lexapro 10 mg daily for depression/anxiety. Continue Buspar 30 mg BID for anxiety. Will continue to monitor ongoing response to treatment. -Encouraged participation in milieu.
[2022-04-08] MEDS: DIVALPROEX ER 500 MG TAB.ER.24H PO SCH (20:30)
[2022-04-08] MEDS: ZOLPIDEM 5 MG TAB PO SCH (20:30)
[2022-04-09] MEDS: busPIRone HCl 10 MG TAB PO SCH ×2 (08:49→20:47)
[2022-04-09] MEDS: ESCITALOPRAM 10 MG TAB PO SCH (08:49)
[2022-04-09] MEDS: risperiDONE 1 MG TAB PO SCH (08:49)
[2022-04-09] MEDS: NICOTINE 14MG/24HR PATCH TRANSDERM SCH (08:49)
[2022-04-09] MEDS: LORazepam 0.5 MG TAB PO SCH (08:50)
[2022-04-09] MEDS ORDERED: PALIPERIDONE IM 234 MG/1.5 ML SYG IM STA (10:41)
--- NOTE | 2022-04-09 10:46 | P.PN ---
Progress Note - Text Progress Note Date: 04/09/22 Interval history: Patient was seen laying in bed and agreeable to speak with the lyric writer in his room. Currently, the patient is not reporting any suicidal or homicidal ideation, intention, and/or plan. He is not reporting any auditory or visual hallucinations. He is denying any paranoia or delusions. Patient reports no issues regarding sleep or his appetite. The patient is agreeable to the transition to Invega Sustenna today. He has been adherent with his medications and is not reporting any significant side effects. The patient denies any fever, chills, shortness of breath, chest pain, or malaise. He reports mild congestion. Mental status exam: General Appearance: Patient appears to be stated age, is laying in bed, with improved hygiene and grooming. Orientation: He is alert and oriented to person, place and time. Behavior: No agitated behavior. Isolates to his bed. Speech: Non-pressured. No delay. Mood/Affect: Mood is "I'm fine", affect is more reactive today, improving. Blunted. Suicidality/Homicidality: He denies any suicidal or homicidal ideation. Perceptions: He denies auditory or visual hallucinations; does not appear to be attending to internal stimuli. Thought process: Linear Thought content: Spontaneous, superficial. Memory and concentration: Alert, oriented to person, place, time Judgment and insight: Poor. Improving mildly. Vital Signs Temp 97.9 F 04/08/22 06:48 Pulse 69 04/08/22 06:48 Resp 16 04/08/22 06:48 BP 107/59 04/08/22 06:48 Pulse Ox 98 04/08/22 06:48 FiO2 Laboratory Results - Last 24 Hours 04/09/22 08:00 Valproic Acid 60.3 Assessment: Catatonia - resolved Bipolar 1 disorder, current episode depressed with psychotic features (provisional) COVID-19 positive - currently asymptomatic Plan: Patient continues to meet criteria for inpatient psychiatric admission for symptom stabilization and safety. -Medications: Continue Depakote ER 1000 mg QHS for mood stabilization. Valproic acid level ordered for today. Plan to transition to long-acting injectable prior to discharge due to history of noncompliance with medications leading to severe decompensation including catatonia and repeated hospitalizations. Invega sustenna 234 mg IM will be administered today. Discontinue oral risperdal. Discontinue ativan. Continue Ambien 10 mg QHS for catatonia. Continue Lexapro 10 mg daily for depression/anxiety. Continue Buspar 30 mg BID for anxiety. Will continue to monitor ongoing response to treatment. -Encouraged participation in milieu.
[2022-04-09 12:54] VITALS: BMI 22.9
[2022-04-09] MEDS: DIVALPROEX ER 500 MG TAB.ER.24H PO SCH (20:47)
[2022-04-09] MEDS: ZOLPIDEM 5 MG TAB PO SCH (20:47)
[2022-04-10] MEDS: NICOTINE 14MG/24HR PATCH TRANSDERM SCH (10:23)
[2022-04-10] MEDS: ESCITALOPRAM 10 MG TAB PO SCH (10:24)
[2022-04-10] MEDS: busPIRone HCl 10 MG TAB PO SCH (10:24)
--- NOTE | 2022-04-10 10:31 | P.DS ---
Providers Date of admission: 03/28/22 22:21 Expected date of discharge: 04/10/22 Attending physician: Puma Fernandez MD Consults: 03/28/22 22:32 Consult Physician Routine Consulting Provider: Maya Barkley Consult Reason/Comments: Medical H&P Do you want consulting provider notified?: Yes Primary care physician: Stated None - Discharge Diagnosis(es) (1) Bipolar I disorder, most recent episode depressed with catatonia Current Visit: Yes Status: Acute Priority: High (2) COVID-19 Current Visit: Yes Status: Acute Priority: Medium (3) Nicotine dependence Current Visit: Yes Status: Chronic Priority: Medium Hospital Course: Admission HPI: Patient is a 36-year-old male with significant history of schizophrenia was admitted for a mental health evaluation. Patient presented to the hospital on 03/28/2022, brought in by police. The pat ient appeared to be confused, exhibiting psychomotor slowing, and unable to appropriately answer questions. As per APS report, the patient stated that he felt dazed and confused and that would take him 5 hours to walk a mile because he gets lost and eases off. The patient also is reported to have several medications including Seroquel, BuSpar, and Lexapro. The patient was subsequently petitioned and certified and admitted to our psychiatric unit. Upon evaluation on her psychiatric unit, the patient remains selectively mute. As per nursing report last night, the patient required much prompting in order to move out of his wheelchair. He was not resistive but needed prompting to cooperate. He was also noted to be very disheveled than sunburn. The patient was agreeable to Ativan and then went to bed. When assessed this morning, the patient continues to be selectively mute and appears to stare at the ground. He remains minimal in conversation. He is unable to provide any information on the events leading up to this hospitalization. It takes him a few minutes to respond to any questions, even questions that required yes and no answer. He is currently denying any suicidal or homicidal ideation. He denies any auditory or visual hallucinations. When asked about any delusional thoughts or thought process, the patient is unable to respond. Attempts to elicit any further his tory regarding his psychiatric medications, substance use, social history, family history, and substance abuse, were met with futility. A second certificate was filled out. PAST PSYCHIATRIC HISTORY: Patient has all medications including Seroquel, Lexapro, and BuSpar. Unable to determine whether the patient has been adherent with these medications or if he follows outpatient with any provider. Unable to determine if he has any prior suicide attempts or previous psychiatric hospitalizations. Hospital course: Upon admission to the unit patient was initially noted to be catatonic and unable to provide any clear history in regards to events leading up to this hospitalization. He was subsequently petitioned and certified. Treatment was initiated with Risperdal for management of psychosis, Lexapro for his depression, BuSpar for anxiety, and Ativan for possible catatonia. During this patient's hospital stay, Depakote was added to his regimen for augmentation and Ativan was gradually titrated pending the patient's therapeutic response. Furthermore, the patient was also started on Ambien. Over the course of this hospitalization, the patient displayed gradual improvement and even deferred mental health court. However, during the patient's hospital stay he ended up сергей Covid-19 infection however remained stable with no serious symptoms. He complained of mild congestion but no concerns for fevers, chills, pneumonia, shortness of breath, malaise, or muscle pain. The patient was eventually transitioned to Invega Sustenna which he tolerated well. On the day of discharge, the patient is not reporting any suicidal or homicidal ideation, intention, and/or plan. He denies any paranoia or other delusions. He is much more spontaneous and was able to address his hygiene and grooming. He has been adherent with his medications and is tolerating them well. The patient was counselled at length on the importance of medication adherence and appropriate outpatient follow-up. He does not endorse a history of substance abuse however was counselled at length on abstaining from all substances including alcohol and marijuana. Prior to discharge, family meeting will be arranged by social media marketing manager to answer any questions and ensure safety. As additional criteria for continued inpatient psychiatric hospitalization, he was subsequently discharged Mental status exam: General Appearance: Patient appears to be stated age is alert, pleasant, and cooperative. Patient is in no acute distress and has much improved hygiene and grooming Behavior: Patient is calmly seated without any agitated behavior. Speech: Patient's speech is fluent and nonpressured. Mood/Affect: Patient reports their mood is "feeling good", affect is congruent and constricted Suicidality/Homicidality: Patient denies having any suicidal or homicidal ideation intent or plan. Perceptions: Patient denies any auditory or visual hallucinations. Though content/process: There is no evidence of any delusional thought content and thought process is linear and goal-directed. Appears to be more future oriented. Memory and concentration: AOX3, grossly intact for the purposes of this session. Can spell "WORLD" backwards correctly. Judgment and insight: Improved with guarded prognosis Impression: Bipolar 1 disorder, depressive episode with psychotic features and catatonia COVID-19 infection Nicotine dependence Plan: -Continue with discharge today as patient has improved and stabilized psychiatrically and is not currently an imminent threat to himself and/or others. Patient will remain at chronically elevated risk due to the severity of his mental health diagnosis and symptoms. -Continue medications: BuSpar 30 mg by mouth twice a day for anxiety Depakote ER 1000 mg by mouth at bedtime for mood stabilization Lexapro 10 mg daily for depression/anxiety Invega Sustenna 156 mg IM is due on 04/15/2022 Ambien 10 mg by mouth at bedtime for 15 days was one refill Habitrol patches for nicotine cessation -Patient was counseled on the need for medication compliance and appropriate follow-up at mental health and also primary care for medical issues. Patient verbalized understanding and agreed. -Social work to arrange for and conduct family meeting to ensure safety upon discharge and answer any questions/concerns. Social work also to arrange for patients follow up appointments with [facility] for psychiatric care along with follow up with primary care provider. -Patient counseled on abstaining from recreational drugs and marijuana and alcohol. Was informed/educated on the adverse effects on their physical and mental health. Patient verbally agreed and understood. Patient was offered substance abuse treatment however declined at this time. -Patient was instructed to return to the hospital or seek immediate medical care if their psychiatric or medical symptoms do worsen or reoccur. -Psychoeducation and supportive therapy provided to patient. Risks and benefits of pharmacological treatment versus the risks and benefits of nontreatment weight and discussed. Informed consent discussion held. Common side effects of psychotropics discussed such as, but not limited to headache, GI disturbance, sexual dysfunction, movement disorders, sedation, and orthostatic hypotension. Life threatening and blackbox warnings of prescribed medications also discussed. Potential risks of operating a vehicle or heavy machinery discussed with patient at length. Advised on importance of compliance and a reliable and responsible manner. Patient advised to review FDA consumer labeling of all medications prior to taking. Patient verbalized understanding of potential risks, and agrees with current treatment plan. Patient advised to medically contact physician/emergency personnel if any acute changes in condition occur. Vital Signs Temp 99 F 04/09/22 16:00 Pulse 85 04/09/22 16:00 Resp 16 04/09/22 16:00 BP 127/72 04/09/22 16:00 Pulse Ox 98 04/08/22 06:48 FiO2 Intake & Output 04/09/22 04/10/22 04/10/22 18:59 06:59 18:59 Weight 72.5 kg Laboratory Results WBC 5.3 k/uL (3.8-10.6) 03/29/22 09: RBC 4.93 m/uL (4.30-5.90) 03/29/22 09:27 Hgb 15.7 gm/dL (13.0-17.5) 03/29/22 09:27 Hct 46.8 % (39.0-53.0) 03/29/22 09:27 MCV 94.9 fL (80.0-100.0) 03/29/22 09:27 MCH 31.9 pg (25.0-35.0) 03/29/22 09:27 MCHC 33.6 g/dL (31.0-37.0) 03/29/22 09:27 RDW 13.3 % (11.5-15.5) 03/29/22 09:27 Plt Count 211 k/uL (150-450) 03/29/22 09:27 MPV 7.1 03/29/22 09:27 Neutrophils % 74 % 03/29/22 09:27 Lymphocytes % 18 % 03/29/22 09:27 Monocytes % 3 % 03/29/22 09:27 Eosinophils % 3 % 03/29/22 09:27 Basophils % 0 % 03/29/22 09:27 Neutrophils # 3.9 k/uL (1.3-7.7) 03/29/22 09:27 Lymphocytes # 1.0 k/uL (1.0-4.8) 03/29/22 09:27 Monocytes # 0.2 k/uL (0-1.0) 03/29/22 09:27 Eosinophils # 0.2 k/uL (0-0.7) 03/29/22 09:27 Basophils # 0.0 k/uL (0-0.2) 03/29/22 09:27 Sodium 139 mmol/L (137-145) 03/29/22 09:27 Potassium 4.2 mmol/L (3.5-5.1) 03/29/22 09: Chloride 105 mmol/L (98-107) 03/29/22 09: Carbon Dioxide 29 mmol/L (22-30) 03/29/22 09:27 Anion Gap 5 mmol/L 03/29/22 09:27 BUN 9 mg/dL (9-20) 03/29/22 09: Creatinine 0.87 mg/dL (0.66-1.25) 03/29/22 09:27 Est GFR (CKD-EPI)AfAm >90 (>60 ml/min/1.73 sqM) 03/29/22 09: Est GFR (CKD-EPI)NonAf >90 (>60 ml/min/1.73 sqM) 03/29/22 09: Glucose 111 mg/dL (74-99) H 03/29/22 09: Estimated Ave Glu mg/dL 99 03/29/22 09: Hemoglobin A1c 5.1 % (0.0-6.0) 03/29/22 09: Calcium 8.9 mg/dL (8.4-10.2) 03/29/22 09: Magnesium 2.1 mg/dL (1.6-2.3) 03/28/22 14:55 Total Bilirubin 0.6 mg/dL (0.2-1.3) 03/29/22 09: Conjugated Bilirubin 0.0 mg/dL (0.0-0.3) 03/29/22 09: Unconjugated Bilirubin 0.6 mg/dL (0.0-1.1) 03/29/22 09: Delta Bilirubin 0.0 mg/dL (0.0-0.2) 03/29/22 09:27 AST 16 U/L (17-59) L 03/29/22 09:27 ALT 12 U/L (4-49) 03/29/22 09: Alkaline Phosphatase 58 U/L (38-126) 03/29/22 09: Total Protein 6.2 g/dL (6.3-8.2) L 03/29/22 09: Albumin 3.8 g/dL (3.5-5.0) 03/29/22 09:27 Triglycerides 90.50 mg/dL (0.00-149.00) 03/29/22 09: Cholesterol 149.00 mg/dL (0.00-200.00) 03/29/22 09: LDL Cholesterol, Calc 93.9 mg/dL (0.0-131.0) 03/29/22 09: VLDL Cholesterol, Calc 18.10 mg/dL (5.00-40.00) 03/29/22 09: HDL Cholesterol 37.00 mg/dL (40.00-60.00) L 03/29/22 09: Cholesterol/HDL Ratio 4.03 Ratio 03/29/22 09: Lipase 402 U/L (23-300) H 03/28/22 14:55 TSH 0.475 mIU/L (0.465-4.680) 03/29/22 09: Urine Color Yellow 03/28/22 15:30 Urine Appearance Clear (Clear) 03/28/22 15:30 Urine pH 6.5 (5.0-8.0) 03/28/22 15:30 Ur Specific Creede 1.019 (1.001-1.035) 03/28/22 15:30 Urine Protein Trace (Negative) H 03/28/22 15:30 Urine Glucose (UA) Negative (Negative) 03/28/22 15:30 Urine Ketones Negative (Negative) 03/28/22 15:30 Urine Blood Negative (Negative) 03/28/22 15:30 Urine Nitrite Negative (Negative) 03/28/22 15:30 Urine Bilirubin Negative (Negative) 03/28/22 15:30 Urine Urobilinogen <2.0 mg/dL (<2.0) 03/28/22 15:30 Ur Leukocyte Esterase Trace (Negative) H 03/28/22 15:30 Urine RBC 1 /hpf (0-5) 03/28/22 15:30 Urine WBC 4 /hpf (0-5) 03/28/22 15:30 Ur Squamous Epith Cells <1 /hpf (0-4) 03/28/22 15:30 Hyaline Casts 1 /lpf (0-2) 03/28/22 15:30 Urine Mucus Rare /hpf (None) H 03/28/22 15:30 Salicylates <1.0 mg/dL 03/28/22 14:55 Urine Opiates Screen Not Detected (NotDetected) 03/28/22 15:30 Ur Oxycodone Screen Not Detected (NotDetected) 03/28/22 15:30 Urine Methadone Screen Not Detected (NotDetected) 03/28/22 15:30 Ur Propoxyphene Screen Not Detected (NotDetected) 03/28/22 15:30 Acetaminophen <10.0 ug/mL 03/28/22 14:55 Ur Barbiturates Screen Not Detected (NotDetected) 03/28/22 15:30 Valproic Acid 60.3 ug/mL 04/09/22 08:00 U Tricyclic Antidepress Not Detected (NotDetected) 03/28/22 15:30 Ur Phencyclidine Scrn Not Detected (NotDetected) 03/28/22 15:30 Ur Amphetamines Screen Not Detected (NotDetected) 03/28/22 15:30 U Methamphetamines Scrn Not Detected (NotDetected) 03/28/22 15:30 U Benzodiazepines Scrn Not Detected (NotDetected) 03/28/22 15:30 Urine Cocaine Screen Not Detected (NotDetected) 03/28/22 15:30 U Marijuana (THC) Screen Not Detected (NotDetected) 03/28/22 15:30 Serum Alcohol <10 mg/dL 03/28/22 14:55 Coronavirus (PCR) Detected (Not Detectd) A 04/02/22 08:10 Allergies Allergy/AdvReac Type Severity Reaction Status Date / Time No Known Allergies Allergy Unverified 04/01/22 16:22 Patient Condition at Discharge: Stable Plan - Discharge Summary Discharge Rx Participant: No New Discharge Prescriptions: New busPIRone HCl [Buspar] 30 mg PO BID 30 Days tab Divalproex ER [Depakote ER] 1,000 mg PO HS 30 Days tab Escitalopram [Lexapro] 10 mg PO DAILY 30 Days tab Paliperidone IM [Invega Sustenna] 156 mg IM QMONTHLY #1 each Zolpidem [Ambien] 10 mg PO HS 15 Days #15 tab Nicotine 14Mg/24Hr Patch [Habitrol] 1 patch TRANSDERM DAILY 30 Days patch Discontinued busPIRone HCL [Buspar] 30 mg PO BID QUEtiapine FUMARATE [SEROquel] 800 mg PO HS Escitalopram [Lexapro] 10 mg PO DAILY Discharge Medication List Divalproex ER [Depakote ER] 1,000 mg PO HS 30 Days tab 04/09/22 [Rx] Escitalopram [Lexapro] 10 mg PO DAILY 30 Days tab 04/09/22 [Rx] Nicotine 14Mg/24Hr Patch [Habitrol] 1 patch TRANSDERM DAILY 30 Days patch 04/09/22 [Rx] Zolpidem [Ambien] 10 mg PO HS 15 Days #15 tab 04/09/22 [Rx] busPIRone HCl [Buspar] 30 mg PO BID 30 Days tab 04/09/22 [Rx] Paliperidone IM [Invega Sustenna] 156 mg IM QMONTHLY #1 each 04/10/22 [Rx] Follow up Appointment(s)/Referral(s): [facility] [Outside] - 1 Week [facility] [[facility]STA[facility]] - 1 Week Patient Instructions/Handouts: How to Stop Smoking (DC), Psychotic Disorder (DC), How to Recover from COVID-19 at Home (ED) Activity/Diet/Wound Care/Special Instructions: Avoid the use of street drugs and alcohol. Take all prescriptions as prescribed. When you are in need of refills on your medications, please contact your medical provider and/or outpatient psychiatrist to have this done. Please go to scheduled outpatient appointment for aftercare treatment. If symptoms return or become worse, call the crisis line at and/or go to the nearest emergency room for evaluation. Discharge Disposition: HOME SELF-CARE
[2022-04-10 11:23] VITALS: BP 118/64; PULSE 82; TEMP 98.3
== END 2022-04-10 12:00 | disposition home or self-care (01) | DRG 885 ==
LOC: EC 13:12 → 3MHU 22:21
PROVIDERS: ADMIT Psychiatry & Neurology Psychiatry; ATTEND Psychiatry & Neurology Psychiatry
DX: F31.5 Bipolar disorder, current episode depressed, severe, with psychotic features (principal); U07.1 COVID-19; F06.1 Catatonic disorder due to known physiological condition; S09.90XA Unspecified injury of head, initial encounter; Z28.310 Unvaccinated for COVID-19; Z91.120 Patient's intentional underdosing of medication regimen due to financial hardship; T50.916A Underdosing of multiple unspecified drugs, medicaments and biological substances, initial encounter; F41.9 Anxiety disorder, unspecified; F94.0 Selective mutism; F17.210 Nicotine dependence, cigarettes, uncomplicated; Z71.6 Tobacco abuse counseling; Z79.899 Other long term (current) drug therapy; Z71.41 Alcohol abuse counseling and surveillance of alcoholic; Z71.51 Drug abuse counseling and surveillance of drug abuser
CPT/HCPCS: 36415; 80053; 80061; 80143; 80164; 80179; 80306; 80320; 81001; 82075; 82248; 83036; 83690; 83735; 84443; 85025; 87635; 96360; 96361; 99285